=== PATIENT | male | born 1990 | race African-American/Black ===

== ENCOUNTER 2018-04-13 18:23 | Emergency (ER) | payer MEDICAID, OTHER ==
[~2018-04-13] VITALS: Ht 167.6 cm; Wt 50.0 kg
[2018-04-13 18:35] VITALS: BP 109/62
[2018-04-13] MEDS ORDERED: KETOROLAC 60MG/2ML VIAL IM STA (19:59)
== END 2018-04-14 12:23 | disposition home or self-care (01) ==
LOC: ER 18:24
DX: S80.02XA Contusion of left knee, initial encounter (principal); J45.909 Unspecified asthma, uncomplicated; D57.1 Sickle-cell disease without crisis; F12.10 Cannabis abuse, uncomplicated; Z98.890 Other specified postprocedural states; Z88.6 Allergy status to analgesic agent; W01.0XXA Fall on same level from slipping, tripping and stumbling without subsequent striking against object, initial encounter; Y93.89 Activity, other specified; Y92.018 Other place in single-family (private) house as the place of occurrence of the external cause
CPT/HCPCS: 73560; 96372; 99284; J1885